=== PATIENT | female | born 1975 | race Two or more races ===

== ENCOUNTER 2018-12-13 18:48 | Emergency (ER) | payer MEDICAID ==
[~2018-12-13] VITALS: Ht 160 cm; Wt 57.2 kg
--- NOTE | 2018-12-13 19:15 | NUR ---
Pt. ambulated into ED accompanied by daughter w/ c/o flu like symptoms since yesterday, reports fever, nausea w/o vomiting, poor appetite and cough w/o discharge, MD at bedside for MSE,
[2018-12-13] MEDS ORDERED: IBUPROFEN 400 MG TABLET ONE (19:20)
--- NOTE | 2018-12-13 19:26 | NUR ---
Patient discharged to home in stable conditon. Written and verbal after care instructions given. Patient verbalizes understanding of instructions. Pt. d/c w/ prescription per MD order, d/c papers signed, all belongings w/ pt., ID band removed, ambulated out of ED w/ steady gait, left in private vehicle w/ daughter, NAD
[2018-12-13] MEDS ORDERED: IBUPROFEN 400 MG TABLET PO ONE (19:30)
== END 2018-12-13 19:28 | disposition home or self-care (01) ==
LOC: ER 18:50
DX: B34.9 Viral infection, unspecified (principal)
CPT/HCPCS: A4663

== ENCOUNTER 2023-10-23 14:35 | Emergency (ER) | payer MEDICAID ==
[~2023-10-23] VITALS: Ht 160 cm; Wt 68.0 kg
[2023-10-23 16:31] LABS: BASOPHILS % (AUTO) 0.1 % (0.0-2.0); EOSINOPHILS % (AUTO) 0.1 % (0.0-7.0); HEMATOCRIT 39.5 % (31.2-41.9); HEMOGLOBIN 13.2 g/dL (10.9-14.3); LYMPHOCYTES % (AUTO) 8.7 % (20.5-51.5); MEAN CORPUSCULAR HEMOGLOBIN 28.6 uug (24.7-32.8); MEAN CORPUSCULAR HGB CONC 33 g/dL (32.3-35.6); MEAN CORPUSCULAR VOLUME 85.7 fL (75.5-95.3); MONOCYTES # (AUTO) 0.5 K/uL (0.1-1.30); MONOCYTES % (AUTO) 4.5 % (0.0-11.0); NEUTROPHILS # (AUTO) 10.3 K/uL (1.8-8.9); NEUTROPHILS % (AUTO) 86.6 % (38.5-71.5); PLATELET COUNT (AUTO) 324 K/uL (179-408); RED BLOOD CELL COUNT(AUTO) 4.61 MIL/uL (3.63-4.92); RED CELL DISTRIBUTION WIDTH 14.3 % (12.3-17.7); WHITE BLOOD COUNT (AUTO) 11.9 K/uL (3.8-11.8)
[2023-10-23 16:41] LABS: DIFFERENTIAL COMMENT 1
[2023-10-23 16:43] LABS: CALCIUM 9.3 mg/dL (8.5-10.1); CREATININE 0.8 mg/dL (0.6-1.3); POTASSIUM 3.8 mmol/L (3.5-5.1)
[2023-10-23] MEDS ORDERED: FLAS1EAC2 TP (17:18)
[2023-10-23] MEDS ORDERED: FLAS1KIT2 TP (17:18)
[2023-10-23 17:25] VITALS: BP 130/76; O2SAT 100
== END 2023-10-23 17:26 | disposition home or self-care (01) ==
LOC: ER 14:35
DX: R00.2 Palpitations (principal); R20.0 Anesthesia of skin; T50.905A Adverse effect of unspecified drugs, medicaments and biological substances, initial encounter; Y92.89 Other specified places as the place of occurrence of the external cause
CPT/HCPCS: 36415; 85025; A4606; A4663